=== PATIENT | male | born 1960 ===

== ENCOUNTER 2023-07-11 13:58 | Outpatient (CLI) | payer MEDICARE | END 2023-07-11 13:59 | disposition home or self-care (01) | LOC: LABBT 13:58 | PROVIDERS: ATTEND Specialist | DX: Z01.810 Encounter for preprocedural cardiovascular examination (principal); J34.2 Deviated nasal septum; J32.1 Chronic frontal sinusitis; J32.3 Chronic sphenoidal sinusitis | CPT/HCPCS: 93005; 93010 ==

== ENCOUNTER 2023-07-12 10:39 | Day surgery (SDC) | payer MEDICARE ==
[2023-07-11 14:17] VITALS: BMI 25.9
[2023-07-12] MEDS ORDERED: Oxymetazoline HCl 0.05% (30 ML BOT) ONE ×3 (11:21→13:22)
[2023-07-12] MEDS ORDERED: Midazolam HCl 2 mg/2 ml Vial ONE (12:24)
[2023-07-12] MEDS ORDERED: Ondansetron PF 4 MG/2 ML Vial ONE (12:40)
[2023-07-12] MEDS ORDERED: PROPOFOL 200 MG/20 ML VIAL ONE (12:40)
[2023-07-12] MEDS ORDERED: ePHEDrine Sulfate 50 MG/10 ML VIAL ONE (12:40)
[2023-07-12] MEDS ORDERED: Dexamethasone 20 MG/5 ML VIAL ONE (12:40)
[2023-07-12] MEDS ORDERED: Lidocaine 1% PF 5 ML VIAL ONE (12:40)
[2023-07-12] MEDS ORDERED: Bacitracin Zinc Ointment 30 gm TUBE ONE (13:22)
[2023-07-12] MEDS ORDERED: Lidocaine 1% (PF) 30 ML VIAL ONE (13:22)
[2023-07-12] MEDS ORDERED: EPINEPHrine 1 MG/ML AMP ONE (13:22)
[2023-07-12] MEDS ORDERED: fentaNYL 50 mcg/mL 1 mL Vial ONE ×2 (13:56→15:49)
[2023-07-12] MEDS ORDERED: fentaNYL PF 100 MCG/2 ML SYRINGE ONE (13:57)
[2023-07-12] MEDS ORDERED: HYDROcodone/Acetaminophen 5/325 mg Tablet ONE (16:31)
== END 2023-07-12 17:07 | disposition home or self-care (01) ==
LOC: SDC 10:39
PROVIDERS: ATTEND Specialist
PROC: 09BM4ZZ Excision of Nasal Septum, Percutaneous Endoscopic Approach (ICD-10-PCS; principal; 2023-07-12)
PROC: 09BL8ZZ Excision of Nasal Turbinate, Via Natural or Artificial Opening Endoscopic (ICD-10-PCS; 2023-07-12)
PROC: 099V8ZZ Drainage of Left Ethmoid Sinus, Via Natural or Artificial Opening Endoscopic (ICD-10-PCS; 2023-07-12)
PROC: 099W8ZZ Drainage of Right Sphenoid Sinus, Via Natural or Artificial Opening Endoscopic (ICD-10-PCS; 2023-07-12)
PROC: 099X8ZZ Drainage of Left Sphenoid Sinus, Via Natural or Artificial Opening Endoscopic (ICD-10-PCS; 2023-07-12)
PROC: 099Q8ZZ Drainage of Right Maxillary Sinus, Via Natural or Artificial Opening Endoscopic (ICD-10-PCS; 2023-07-12)
PROC: 099R8ZZ Drainage of Left Maxillary Sinus, Via Natural or Artificial Opening Endoscopic (ICD-10-PCS; 2023-07-12)
PROC: 099S8ZZ Drainage of Right Frontal Sinus, Via Natural or Artificial Opening Endoscopic (ICD-10-PCS; 2023-07-12)
PROC: 099T8ZZ Drainage of Left Frontal Sinus, Via Natural or Artificial Opening Endoscopic (ICD-10-PCS; 2023-07-12)
PROC: 099U8ZZ Drainage of Right Ethmoid Sinus, Via Natural or Artificial Opening Endoscopic (ICD-10-PCS; 2023-07-12)
DX: J34.2 Deviated nasal septum (principal); J32.1 Chronic frontal sinusitis; J32.3 Chronic sphenoidal sinusitis; J32.2 Chronic ethmoidal sinusitis; J34.3 Hypertrophy of nasal turbinates; J30.2 Other seasonal allergic rhinitis; Z79.899 Other long term (current) drug therapy
CPT/HCPCS: 30140; 30520; 31253; 31267; 31288; 61782; J3010; J0171; J1100; J2001; J2250; J2405; J2704